=== PATIENT | female | born 1935 | race Caucasian/White ===

== ENCOUNTER 2021-09-05 21:55 | Inpatient (IN) | payer OTHER ==
[~2021-09-05] VITALS: Ht 167.6 cm; Wt 62.1 kg
[2021-09-05 23:20] LABS: HEMOGLOBIN 9.3 gm/dl (12.3-15.3); RED BLOOD COUNT 3.23 M/UL (4.00-5.10); WHITE BLOOD COUNT 9.1 K/UL (4.5-11.0)
[2021-09-05 23:44] LABS: BUN/CREATININE RATIO 39 (0-10)
[2021-09-06] MEDS ORDERED: CALCIUM 600 +1 EAC3 PO (05:09)
[2021-09-06] MEDS ORDERED: BUMETANIDE1 MG PO (05:09)
[2021-09-06] MEDS ORDERED: XANAX0.25 MG PO (05:09)
[2021-09-06] MEDS ORDERED: VITAMIN D325 MCG PO (05:10)
[2021-09-06] MEDS ORDERED: CARBIDOPA-LEVO1 EAC6 PO (05:10)
[2021-09-06] MEDS ORDERED: CITALOPRAM HBR10 MG PO (05:11)
[2021-09-06] MEDS ORDERED: NEXIUM40 MG PO (05:11)
[2021-09-06] MEDS ORDERED: IPRAT-ALBUT 0.5-3 ML INH (05:12)
[2021-09-06] MEDS ORDERED: ZAROXOLYN/DIUL2.5 MG PO (05:12)
[2021-09-06] MEDS ORDERED: NIFEREX 150 MG150 MG PO (05:12)
[2021-09-06] MEDS ORDERED: MIDODRINE HCL2.5 MG PO (05:13)
[2021-09-06] MEDS ORDERED: MULTI-VITAMIN1 EACH PO (05:13)
[2021-09-06] MEDS ORDERED: ROPINIROLE HCL0.5 MG PO (05:14)
[2021-09-06] MEDS ORDERED: K-TAB ER20 MEQ PO (05:14)
[2021-09-06] MEDS ORDERED: TAMOXIFEN CITRA20 MG PO (05:15)
[2021-09-07 05:58] LABS: HEMOGLOBIN 9.2 gm/dl (12.3-15.3); RED BLOOD COUNT 3.28 M/UL (4.00-5.10)
[2021-09-08 04:22] LABS: HEMOGLOBIN 8.2 gm/dl (12.3-15.3); WHITE BLOOD COUNT 5.4 K/UL (4.5-11.0)
[2021-09-08 04:29] LABS: RED BLOOD COUNT 2.94 M/UL (4.00-5.10)
--- NOTE | 2021-09-10 15:14 | NUR ---
CALLED REPORT TO USMAN SIMON RN
== END 2021-09-10 15:00 | disposition home health service (06) | DRG 291 ==
LOC: ER1 21:55 → M/S 09-06 03:03 → CDU 09-06 03:03 → M/S 09-06 04:20
PROVIDERS: Internal Medicine; Physician Assistant; ADMIT Internal Medicine
PROC: 3E03329 Introduction of Other Anti-infective into Peripheral Vein, Percutaneous Approach (ICD-10-PCS; principal; 2021-09-06)
PROC: B24BZZZ Ultrasonography of Heart with Aorta (ICD-10-PCS; 2021-09-07)
DX: I13.0 Hypertensive heart and chronic kidney disease with heart failure and stage 1 through stage 4 chronic kidney disease, or unspecified chronic kidney disease (principal); J96.21 Acute and chronic respiratory failure with hypoxia; Z20.822 Contact with and (suspected) exposure to COVID-19; G93.41 Metabolic encephalopathy; I50.33 Acute on chronic diastolic (congestive) heart failure; N17.9 Acute kidney failure, unspecified; E87.1 Hypo-osmolality and hyponatremia; N30.01 Acute cystitis with hematuria; R44.3 Hallucinations, unspecified; E87.2 Acidosis; J98.11 Atelectasis; G20 Parkinson's disease; I27.20 Pulmonary hypertension, unspecified; N18.30 Chronic kidney disease, stage 3 unspecified; J44.9 Chronic obstructive pulmonary disease, unspecified; I25.10 Atherosclerotic heart disease of native coronary artery without angina pectoris; F02.80 Dementia in other diseases classified elsewhere, unspecified severity, without behavioral disturbance, psychotic disturbance, mood disturbance, and anxiety; L89.151 Pressure ulcer of sacral region, stage 1; I49.5 Sick sinus syndrome; Z95.0 Presence of cardiac pacemaker; Z82.49 Family history of ischemic heart disease and other diseases of the circulatory system; Z90.49 Acquired absence of other specified parts of digestive tract; Z95.5 Presence of coronary angioplasty implant and graft
CPT/HCPCS: ECHO; 0240U; 36415; 36600; 71045; 71250; 80048; 80053; 81001; 82550; 82553; 82803; 83605; 83735; 83880; 84100; 84132; 84439; 84443; 84484; 85025; 85027; 85610; 85652; 85730; 86140; 87040; 87086; 93005; 93306; 94640; 94664; 94760; 97110-GP-CQ; 97116-GP-CQ; 97162; 99285; J0692; J1940; J3480; J7030